=== PATIENT | female | born 1970 | race Caucasian/White ===

== ENCOUNTER 2023-05-17 11:54 | Emergency (ER) | payer MEDICAID ==
[~2023-05-17] VITALS: Ht 165.1 cm; Wt 59.8 kg
[2023-05-17 12:03] VITALS: TEMP 96.7
--- NOTE | 2023-05-17 12:05 | NUR ---
DR GUEVARA MADE AWARE OF TRAUMA PT AND CT OF HEAD AND NECK REQUESTED. ORDERS PLACED BY
--- NOTE | 2023-05-17 13:03 | NUR ---
PT REFUSING TO WEAR C COLLAR. CHARGE NURSE NOTIFIED.
[2023-05-17 13:46] VITALS: BP 110/71; PULSE 69; O2SAT 98
[2023-05-17] MEDS ORDERED: ketorolac trometh inj. 60 MG/2 ML VIAL IM ONE (14:15)
[2023-05-17] MEDS ORDERED: ondansetron 4mg rapidly disintigrating tab PO ONE (14:15)
[2023-05-17] MEDS ORDERED: ketorolac tromethamine 15mg/ml inj. IM ONE (14:25)
[2023-05-17 14:54] VITALS: RESP 16
[2023-05-17] MEDS ORDERED: TRAM50TA2 PO ×4 (15:10→18:39)
[2023-05-17] MEDS ORDERED: ONDA4TAB12 PO (15:20)
== END 2023-05-17 15:32 | disposition home or self-care (01) ==
LOC: ER 11:55
DX: S22.32XA Fracture of one rib, left side, initial encounter for closed fracture (principal); S70.02XA Contusion of left hip, initial encounter; R53.1 Weakness; Z88.8 Allergy status to other drugs, medicaments and biological substances; Z79.899 Other long term (current) drug therapy; V80.010A Animal-rider injured by fall from or being thrown from horse in noncollision accident, initial encounter; Y93.89 Activity, other specified; Y92.89 Other specified places as the place of occurrence of the external cause; Y99.8 Other external cause status
CPT/HCPCS: 70450; 71100; 72125; 73502; 96372; 99285; J1885